=== PATIENT | female | born 1950 | race Caucasian/White ===

== ENCOUNTER 2018-04-14 21:05 | Emergency (ER) | payer OTHER ==
[2018-04-14] MEDS ORDERED: KETOROLAC TROMETHAMINE 30MG/ML ONE (22:11)
== END 2018-04-14 22:27 | disposition home or self-care (01) ==
LOC: EDH 21:05
DX: S92.492A Other fracture of left great toe, initial encounter for closed fracture (principal); S92.301A Fracture of unspecified metatarsal bone(s), right foot, initial encounter for closed fracture; W23.0XXA Caught, crushed, jammed, or pinched between moving objects, initial encounter; Y93.89 Activity, other specified; Y92.098 Other place in other non-institutional residence as the place of occurrence of the external cause; Y99.8 Other external cause status
CPT/HCPCS: 73630 ×2; 96372; 99284; J1885